=== PATIENT | female | born 1970 | race Caucasian/White ===

== ENCOUNTER 2020-07-21 19:05 | Emergency (ER) | payer MEDICAID ==
[~2020-07-21] VITALS: Ht 160 cm; Wt 64.4 kg
[2020-07-21 19:24] VITALS: Ht 160 cm; Wt 64.4 kg
[2020-07-21 21:05] VITALS: BP 137/89
== END 2020-07-21 21:05 | disposition home or self-care (01) ==
LOC: ED 19:05
DX: M25.512 Pain in left shoulder (principal); E03.9 Hypothyroidism, unspecified
CPT/HCPCS: J1885